=== PATIENT | male | born 1950 | race Caucasian/White ===

== ENCOUNTER 2023-12-16 16:24 | Emergency (ER) | payer MEDICARE, OTHER ==
[~2023-12-16] VITALS: Ht 175.3 cm; Wt 76.2 kg
[2023-12-16 18:21] VITALS: BP 130/72; TEMP 98.1; O2SAT 100
== END 2023-12-16 18:22 | disposition home or self-care (01) ==
LOC: ER 17:23
DX: M19.011 Primary osteoarthritis, right shoulder (principal); G89.29 Other chronic pain

== ENCOUNTER 2024-03-17 16:57 | Inpatient (IN) | payer MEDICARE, OTHER ==
[~2024-03-17] VITALS: Ht 182.9 cm; Wt 116.1 kg
[2024-03-17] MEDS ORDERED: LORAZEPAM INJ 2 MG/ML VIAL ONE ×2 (18:06→20:30)
[2024-03-17] MEDS: LORAZEPAM INJ 2 MG/ML VIAL IV ONE ×2 (18:10→20:36)
[2024-03-17] MEDS: IV NS 0.9% 1,000 ML BAG IV ONE (18:15)
[2024-03-17 18:30] LABS: BASOPHILS # (AUTO) 0.1 K/uL (0.0-0.2); BASOPHILS % (AUTO) 0.4 % (0.0-2.0); EOSINOPHILS % (AUTO) 0.3 % (0.0-6.0); HEMATOCRIT 48 % (39-51); HEMOGLOBIN 16.3 g/dL (13.5-17.5); LYMPHOCYTES # (AUTO) 1.3 K/uL (0.8-4.8); MEAN CORPUSCULAR HEMOGLOBIN 30 PG (26.0-33.0); MEAN CORPUSCULAR HGB CONC 34 g/dl (31.0-36.0); MEAN CORPUSCULAR VOLUME 87 fL (80-96); MONOCYTES # (AUTO) 0.8 K/uL (0.1-1.30); MONOCYTES % (AUTO) 5.3 % (2.0-12.0); NEUTROPHILS # (AUTO) 13.7 K/uL (1.8-8.9); PLATELET COUNT (AUTO) 310 K/uL (150-450); RED BLOOD CELL COUNT(AUTO) 5.54 MIL/uL (4.5-6.0); RED CELL DISTRIBUTION WIDTH 17.1 % (11.5-15.0); WHITE BLOOD COUNT (AUTO) 15.9 K/uL (4.3-11.0)
[2024-03-17 18:41] LABS: SERUM AMMONIA 58 umol/L (11-32)
[2024-03-17 18:55] LABS: LACTIC ACID 5.8 mmol/L (0.4-2.0)
[2024-03-17 18:57] LABS: INR 1.1 (0.91-1.10); PROTHROMBIN TIME 11.6 SECS (9.2-11.1)
[2024-03-17] MEDS: CEFEPIME 1 GM in IV D5W 50 ML IV ONE (19:00)
[2024-03-17] MEDS: VANCOMYCIN 1 GM in IV D5W 250 ML IV ONE (19:00)
[2024-03-17 19:05] LABS: CALCIUM, SERUM 10.1 mg/dL (8.5-10.1); CARBON DIOXIDE 29 mmol/L (21-32); CHLORIDE 106 mmol/L (98-107); CREATININE 1.1 mg/dL (0.6-1.3); GLUCOSE 168 mg/dL (74-106); POTASSIUM 4.8 mmol/L (3.5-5.1); SODIUM SERUM 145 mmol/L (136-145); UREA NITROGEN, BLOOD 10 mg/dL (7-18)
[2024-03-17 19:11] LABS: ALANINE AMINOTRANSFERASE 30 U/L (12-78); ALBUMIN 3.7 g/dL (3.4-5.0); ALKALINE PHOSPHATASE 138 U/L (46-116); ASPARTATE AMINOTRANSFERASE 16 U/L (15-37); BILIRUBIN,DIRECT 0.3 mg/dL (0.0-0.2); BILIRUBIN,TOTAL 1.3 mg/dL (0.2-1.0); TOTAL PROTEIN, SERUM 8.5 g/dL (6.4-8.2)
[2024-03-17 19:12] LABS: ACETAMINOPHEN <10 ug/ml (10-30); ALCOHOL, BLOOD < 3 mg/dL (0-10); SALICYLATE 2.4 mg/dL (2.8-20.0)
[2024-03-17] MEDS ORDERED: HALOPERIDOL LACTATE INJ 5 MG/ML VIAL ONE (19:16)
[2024-03-17] MEDS ORDERED: diphenhydrAMINE HCL 50 MG/ML VIAL ONE (19:16)
[2024-03-17] MEDS: diphenhydrAMINE HCL 50 MG/ML VIAL IV ONE (19:21)
[2024-03-17] MEDS: HALOPERIDOL LACTATE INJ 5 MG/ML VIAL IV ONE (19:23)
[2024-03-17] MEDS ORDERED: CEFEPIME 1 GM VIAL ONE ×2 (20:13→20:52)
[2024-03-17] MEDS ORDERED: VANCOMYCIN 1 GM /D5W 250 ML PB IV ONE (20:52)
[2024-03-17] MEDS ORDERED: Z GUARD REMEDY 4 OZ OINT TP PRN (22:30)
[2024-03-17] MEDS ORDERED: ACETAMINOPHEN 325 MG TABLET PO PRN (22:30)
[2024-03-17] MEDS ORDERED: MAGNESIUM HYDROXIDE 30 ML UDC PO PRN (22:30)
[2024-03-17] MEDS ORDERED: ONDANSETRON HCL/PF 4 MG/2 ML VIAL IVP PRN (22:30)
[2024-03-17] MEDS ORDERED: MAG HYDROX/AL HYDROX/SIMETH 30 ML UDC PO PRN (22:30)
[2024-03-17] MEDS: LACTULOSE 10 G/15 ML UDC (PYXIS) PO SCH (23:30)
[2024-03-17] MEDS: OLANZAPINE 10 MG VIAL IM ONE (23:56)
[2024-03-17] MEDS: ENOXAPARIN SODIUM 40 MG/0.4 ML DISP.SYRIN SQ SCH (23:56)
[2024-03-18] VITALS: BP 116/65; TEMP 98.8; O2SAT 95
[2024-03-18] MEDS ORDERED: OLANZAPINE 10 MG VIAL IM ONE (01:00)
[2024-03-18 04:00] VITALS: BP 98/52; TEMP 98; O2SAT 92; O2SAT 97
[2024-03-18] MEDS: PANTOPRAZOLE 40 MG TABLET.DR PO SCH (07:32)
[2024-03-18 08:00] VITALS: BP 134/64; TEMP 98.4; O2SAT 94
[2024-03-18 12:00] VITALS: BP 160/91; TEMP 98.4; O2SAT 92
[2024-03-18] MEDS: OLANZAPINE 2.5 MG TABLET PO SCH (17:00)
[2024-03-18] MEDS: CEFTRIAXONE 1 G in IV D5W 50 ML IV SCH (18:03)
[2024-03-18] MEDS: HYDROCODONE/APAP 5/325MG TABLET PO PRN (18:37)
[2024-03-18 20:19] VITALS: BP 129/61; TEMP 98.6; O2SAT 93
[2024-03-18] MEDS: ZOLPIDEM TARTRATE 5 MG TABLET PO PRN (21:11)
[2024-03-19 07:00] VITALS: BP 137/80; TEMP 98.4; O2SAT 92
[2024-03-19 11:30] VITALS: BP 148/71; TEMP 97.9; O2SAT 93
[2024-03-19 11:39] LABS: BASOPHILS % (AUTO) 0.4 % (0.0-2.0); EOSINOPHILS # (AUTO) 0.1 K/uL (0.0-0.7); EOSINOPHILS % (AUTO) 0.8 % (0.0-6.0); HEMATOCRIT 43 % (39-51); HEMOGLOBIN 14.5 g/dL (13.5-17.5); LYMPHOCYTES # (AUTO) 1.2 K/uL (0.8-4.8); LYMPHOCYTES % (AUTO) 12.1 % (20.0-44.0); MEAN CORPUSCULAR HEMOGLOBIN 30 PG (26.0-33.0); MEAN CORPUSCULAR HGB CONC 34 g/dl (31.0-36.0); MEAN CORPUSCULAR VOLUME 87 fL (80-96); MONOCYTES # (AUTO) 0.5 K/uL (0.1-1.30); MONOCYTES % (AUTO) 4.8 % (2.0-12.0); NEUTROPHILS # (AUTO) 8.1 K/uL (1.8-8.9); NEUTROPHILS % (AUTO) 81.9 % (43.0-81.0); PLATELET COUNT (AUTO) 254 K/uL (150-450); RED BLOOD CELL COUNT(AUTO) 4.88 MIL/uL (4.5-6.0); WHITE BLOOD COUNT (AUTO) 9.9 K/uL (4.3-11.0)
[2024-03-19 11:48] LABS: CALCIUM, SERUM 8.6 mg/dL (8.5-10.1); POTASSIUM 3.9 mmol/L (3.5-5.1)
[2024-03-19 14:15] LABS: AMPHETAMINE, URINE NEGATIVE (NEGATIVE); BARBITURATE, URINE NEGATIVE (NEGATIVE); BENZODIAZEPINE, URINE NEGATIVE (NEGATIVE); CANNABINOID, URINE NEGATIVE (NEGATIVE); COCCAINE, URINE NEGATIVE (NEGATIVE); PHENCYCLIDINE SCREEN,URINE NEGATIVE (NEGATIVE)
[2024-03-19 14:16] LABS: OPIATE, URINE POSITIVE (NEGATIVE)
[2024-03-19 14:27] LABS: APPEARANCE,URINE TURBID (CLEAR); BILIRUBIN,URINE NEGATIVE (NEGATIVE); BLOOD, URINE NEGATIVE Ery/uL (NEGATIVE); COLOR,URINE YELLOW (YELLOW); KETONES,URINE NEGATIVE (NEGATIVE); LEUKOCYTE ESTERASE ,URINE NEGATIVE (NEGATIVE); NITRITE, URINE NEGATIVE (NEGATIVE); PROTEIN,URINE TRACE mg/dl (NEGATIVE); UGLUCOSE NEGATIVE (NEGATIVE)
[2024-03-19 14:47] LABS: ADD URINE CULTURE NO; BACTERIA,URINE Rare /HPF (None Seen); RBC,URINE 0-2 /HPF (0-2); SQUAMOUS EPITHELIAL CELL,UR None Seen /HPF (None Seen); URINE AMORPHOUS URATE Few /HPF (None Seen); WBC,URINE 0-2 /HPF (0-3)
[2024-03-19 14:48] LABS: COARSE GRANULAR CASTS,URINE Rare /LPF (None Seen)
[2024-03-19 16:00] VITALS: BP 163/107; TEMP 98.1; O2SAT 93
[2024-03-19 20:00] VITALS: BP 142/68; TEMP 98.1; O2SAT 92
[2024-03-19 22:31] LABS: SERUM AMMONIA 42 umol/L (11-32)
[2024-03-19 22:40] LABS: LACTIC ACID 0.8 mmol/L (0.4-2.0)
[2024-03-19 22:41] LABS: ALANINE AMINOTRANSFERASE 24 U/L (12-78); ALBUMIN 2.8 g/dL (3.4-5.0); ALKALINE PHOSPHATASE 106 U/L (46-116); ASPARTATE AMINOTRANSFERASE 16 U/L (15-37); BILIRUBIN,DIRECT 0.1 mg/dL (0.0-0.2); BILIRUBIN,TOTAL 0.5 mg/dL (0.2-1.0); MAGNESIUM 1.9 mg/dL (1.8-2.4); NT-PRO BNP 358 pg/mL (0-125); PHOSPHORUS 4.1 mg/dL (2.5-4.9)
[2024-03-20] VITALS: BP 136/70; TEMP 97.7; O2SAT 91
[2024-03-20 04:00] VITALS: BP 135/65; TEMP 98.4; O2SAT 92
[2024-03-20 06:43] LABS: BASOPHILS % (AUTO) 0.4 % (0.0-2.0); EOSINOPHILS # (AUTO) 0.2 K/uL (0.0-0.7); EOSINOPHILS % (AUTO) 1.5 % (0.0-6.0); HEMATOCRIT 44 % (39-51); HEMOGLOBIN 14.7 g/dL (13.5-17.5); LYMPHOCYTES # (AUTO) 0.9 K/uL (0.8-4.8); LYMPHOCYTES % (AUTO) 7.5 % (20.0-44.0); MEAN CORPUSCULAR HEMOGLOBIN 29 PG (26.0-33.0); MEAN CORPUSCULAR HGB CONC 34 g/dl (31.0-36.0); MEAN CORPUSCULAR VOLUME 87 fL (80-96); MONOCYTES # (AUTO) 0.6 K/uL (0.1-1.30); MONOCYTES % (AUTO) 5.3 % (2.0-12.0); NEUTROPHILS # (AUTO) 9.8 K/uL (1.8-8.9); NEUTROPHILS % (AUTO) 85.3 % (43.0-81.0); PLATELET COUNT (AUTO) 239 K/uL (150-450); RED BLOOD CELL COUNT(AUTO) 5.07 MIL/uL (4.5-6.0); RED CELL DISTRIBUTION WIDTH 16.7 % (11.5-15.0); WHITE BLOOD COUNT (AUTO) 11.5 K/uL (4.3-11.0)
[2024-03-20 07:00] VITALS: BP 115/71; TEMP 98.2; O2SAT 95
[2024-03-20 07:12] LABS: CALCIUM, SERUM 8.5 mg/dL (8.5-10.1); CREATININE 0.8 mg/dL (0.6-1.3); POTASSIUM 3.7 mmol/L (3.5-5.1)
[2024-03-20] MEDS: OLANZAPINE ZYDIS 5 MG TAB.RAPDIS PO PRN (08:39)
[2024-03-20 11:27] VITALS: BP 141/71; TEMP 97.9; O2SAT 92
[2024-03-20 16:00] VITALS: BP 134/74; O2SAT 94
[2024-03-20 20:00] VITALS: BP 141/67; TEMP 97.9; O2SAT 95
[2024-03-21] VITALS: BP 131/73; TEMP 98.1; O2SAT 96
[2024-03-21 04:00] VITALS: BP 120/79; TEMP 97.9; O2SAT 95
[2024-03-21 08:00] VITALS: BP 139/82; TEMP 98.6; O2SAT 93
[2024-03-21 12:00] VITALS: BP 118/69; TEMP 98.2; O2SAT 92
[2024-03-21 16:00] VITALS: BP 129/71; TEMP 97.3; O2SAT 95
[2024-03-21 20:00] VITALS: BP 106/79; TEMP 98.4; O2SAT 92
[2024-03-22] VITALS: BP 132/72; TEMP 98.1; O2SAT 93
[2024-03-22 04:00] VITALS: BP 110/66; TEMP 97.9; O2SAT 97
[2024-03-22 08:00] VITALS: BP 114/75; TEMP 97.7; O2SAT 96
[2024-03-22] MEDS: HYDROCODONE/APAP 5/325MG TABLET PO ONE (11:15)
[2024-03-22 16:00] VITALS: BP 114/64; TEMP 97.7; O2SAT 94
== END 2024-03-22 20:10 | DRG 441 ==
LOC: ER 17:05 → TELE 22:04 → MED 03-22 12:13
PROVIDERS: ADMIT Nurse Practitioner Family; ATTEND Nurse Practitioner Family
DX: K76.82 Hepatic encephalopathy (principal); J15.9 Unspecified bacterial pneumonia; J96.01 Acute respiratory failure with hypoxia; E87.20 Acidosis, unspecified; R65.10 Systemic inflammatory response syndrome (SIRS) of non-infectious origin without acute organ dysfunction; E72.20 Disorder of urea cycle metabolism, unspecified; F39 Unspecified mood [affective] disorder; E80.6 Other disorders of bilirubin metabolism; R73.9 Hyperglycemia, unspecified; F29 Unspecified psychosis not due to a substance or known physiological condition; G47.33 Obstructive sleep apnea (adult) (pediatric)
CPT/HCPCS: 36415; 70450-TC; 71045-TC; 73030-TC; 80048-TC; 80076-TC; 81001; 82140-TC; 82550-TC; 82962-TC; 83605-TC; 83735-TC; 83880; 84100-TC; 84443-TC; 84484-TC; 85025-TC; 85730-TC; 87040-TC; 87086-TC; 93307-TC; 97116-TC; 97530-TC; A4223; G0378; G0480; J0692; J0696; J1200; J1630; J1650; J2060; J3370; J3490; J7030; J7042; J7060

== ENCOUNTER 2024-03-29 16:17 | Inpatient (IN) | payer MEDICARE, OTHER ==
[~2024-03-29] VITALS: Ht 172.7 cm; Wt 117.9 kg
[2024-03-29 17:11] LABS: BASOPHILS # (AUTO) 0.1 K/uL (0.0-0.2); BASOPHILS % (AUTO) 0.9 % (0.0-2.0); EOSINOPHILS # (AUTO) 0.2 K/uL (0.0-0.7); EOSINOPHILS % (AUTO) 1.6 % (0.0-6.0); HEMATOCRIT 44 % (39-51); HEMOGLOBIN 14.8 g/dL (13.5-17.5); LYMPHOCYTES % (AUTO) 10.9 % (20.0-44.0); MEAN CORPUSCULAR HEMOGLOBIN 29 PG (26.0-33.0); MEAN CORPUSCULAR HGB CONC 34 g/dl (31.0-36.0); MEAN CORPUSCULAR VOLUME 87 fL (80-96); MONOCYTES # (AUTO) 0.5 K/uL (0.1-1.30); MONOCYTES % (AUTO) 5.3 % (2.0-12.0); NEUTROPHILS # (AUTO) 7.7 K/uL (1.8-8.9); NEUTROPHILS % (AUTO) 81.3 % (43.0-81.0); PLATELET COUNT (AUTO) 233 K/uL (150-450); RED BLOOD CELL COUNT(AUTO) 5.06 MIL/uL (4.5-6.0); RED CELL DISTRIBUTION WIDTH 16.7 % (11.5-15.0); WHITE BLOOD COUNT (AUTO) 9.4 K/uL (4.3-11.0)
[2024-03-29 17:22] LABS: CALCIUM, SERUM 8.7 mg/dL (8.5-10.1); CARBON DIOXIDE 27 mmol/L (21-32); CHLORIDE 112 mmol/L (98-107); CREATININE 0.9 mg/dL (0.6-1.3); GLUCOSE 187 mg/dL (74-106); POTASSIUM 3.8 mmol/L (3.5-5.1); SERUM AMMONIA 25 umol/L (11-32); SODIUM SERUM 148 mmol/L (136-145); UREA NITROGEN, BLOOD 6 mg/dL (7-18)
[2024-03-29 17:34] LABS: ALANINE AMINOTRANSFERASE 23 U/L (12-78); ALKALINE PHOSPHATASE 111 U/L (46-116); ASPARTATE AMINOTRANSFERASE 11 U/L (15-37); BILIRUBIN,DIRECT 0.2 mg/dL (0.0-0.2); BILIRUBIN,TOTAL 0.7 mg/dL (0.2-1.0); LIPASE 26 U/L (16-77); NT-PRO BNP 391 pg/mL (0-125); TOTAL PROTEIN, SERUM 6.8 g/dL (6.4-8.2)
[2024-03-29] MEDS ORDERED: Z GUARD REMEDY 4 OZ OINT TP PRN (21:30)
[2024-03-29] MEDS ORDERED: ONDANSETRON HCL/PF 4 MG/2 ML VIAL IVP PRN (21:30)
[2024-03-29] MEDS ORDERED: MAG HYDROX/AL HYDROX/SIMETH 30 ML UDC PO PRN (21:30)
[2024-03-29] MEDS ORDERED: MAGNESIUM HYDROXIDE 30 ML UDC PO PRN (21:30)
[2024-03-30] MEDS: FUROSEMIDE 40 MG/4 ML VIAL IV ONE (00:13)
[2024-03-30] MEDS ORDERED: FUROSEMIDE 40 MG/4 ML VIAL ONE (00:13)
[2024-03-30 08:18] LABS: BASOPHILS % (AUTO) 0.4 % (0.0-2.0); EOSINOPHILS # (AUTO) 0.3 K/uL (0.0-0.7); EOSINOPHILS % (AUTO) 2.8 % (0.0-6.0); HEMATOCRIT 46 % (39-51); HEMOGLOBIN 15.7 g/dL (13.5-17.5); LYMPHOCYTES # (AUTO) 1.1 K/uL (0.8-4.8); LYMPHOCYTES % (AUTO) 10.9 % (20.0-44.0); MEAN CORPUSCULAR HEMOGLOBIN 30 PG (26.0-33.0); MEAN CORPUSCULAR HGB CONC 34 g/dl (31.0-36.0); MEAN CORPUSCULAR VOLUME 87 fL (80-96); MONOCYTES # (AUTO) 0.6 K/uL (0.1-1.30); MONOCYTES % (AUTO) 5.5 % (2.0-12.0); NEUTROPHILS # (AUTO) 8.2 K/uL (1.8-8.9); NEUTROPHILS % (AUTO) 80.4 % (43.0-81.0); PLATELET COUNT (AUTO) 263 K/uL (150-450); RED BLOOD CELL COUNT(AUTO) 5.29 MIL/uL (4.5-6.0); RED CELL DISTRIBUTION WIDTH 16.9 % (11.5-15.0); WHITE BLOOD COUNT (AUTO) 10.2 K/uL (4.3-11.0)
[2024-03-30 08:29] LABS: ALBUMIN 3.3 g/dL (3.4-5.0); BILIRUBIN,TOTAL 0.7 mg/dL (0.2-1.0); CALCIUM, SERUM 8.9 mg/dL (8.5-10.1); MAGNESIUM 2.3 mg/dL (1.8-2.4); PHOSPHORUS 4.2 mg/dL (2.5-4.9); POTASSIUM 3.7 mmol/L (3.5-5.1); TOTAL PROTEIN, SERUM 7.6 g/dL (6.4-8.2)
[2024-03-30] MEDS ORDERED: SPIRONOLACTONE 25 MG TABLET ONE (08:45)
[2024-03-30] MEDS: LACTULOSE 10 G/15 ML UDC (PYXIS) PO SCH (09:00)
[2024-03-30] MEDS: SPIRONOLACTONE 25 MG TABLET PO SCH (09:00)
[2024-03-30] MEDS ORDERED: LACTULOSE 10 G/15 ML UDC (PYXIS) ONE ×2 (10:18)
[2024-03-30] MEDS ORDERED: ENOXAPARIN SODIUM 40 MG/0.4 ML DISP.SYRIN SQ ONE (13:13)
[2024-03-30] MEDS: ENOXAPARIN SODIUM 40 MG/0.4 ML DISP.SYRIN SQ SCH (13:17)
[2024-03-30 13:32] LABS: ABG BASE EXCESS -1.7 mmol/L (-2.0-3.0); ABG PCO2 33.6 mmHg (35.0-48.0); ABG PH 7.428 (7.350-7.450); ABG PO2 80.2 mmHg (83.0-108.0); ABG TOTAL HEMOGLOBIN 16.3 G/dL (13.5-17.5); COHb 0.7 % (0.5-1.5); MetHb 0.2 % (0.0-1.5); O2Hb 95.1 % (94.0-97.0); SITE, ABG RIGHT RADIAL
[2024-03-30] MEDS ORDERED: IPRATROPIUM NEB FS 0.5 MG/2.5 ML AMPUL.NEB ONE (13:35)
[2024-03-30] MEDS ORDERED: ALBUTEROL FS 2.5 MG/3 ML VIAL.NEB ONE (13:35)
[2024-03-30 13:37] VITALS: O2SAT 96
[2024-03-30] MEDS: ALBUTEROL HALF STRENGTH 1.25 MG/3 ML VIAL.NEB NEB SCH (13:37)
[2024-03-30] MEDS: IPRATROPIUM NEB FS 0.5 MG/2.5 ML AMPUL.NEB NEB SCH (13:37)
[2024-03-30 13:52] VITALS: O2SAT 98
[2024-03-30] MEDS: FUROSEMIDE 40 MG/4 ML VIAL IV SCH (16:22)
[2024-03-30] MEDS: HYDROCODONE/APAP 5/325MG TABLET PO PRN (16:22)
[2024-03-30 19:50] VITALS: O2SAT 98
[2024-03-30 20:05] VITALS: O2SAT 98
[2024-03-31] VITALS (12 sets, daily range): BP systolic 113–128; BP diastolic 72–74; TEMP 96.4–98.1; O2SAT 92–100
[2024-03-31] MEDS: HYDROCODONE/APAP 5/325MG TABLET PO PRN (03:01)
[2024-03-31 06:32] LABS: BASOPHILS # (AUTO) 0.1 K/uL (0.0-0.2); BASOPHILS % (AUTO) 0.5 % (0.0-2.0); EOSINOPHILS # (AUTO) 0.2 K/uL (0.0-0.7); EOSINOPHILS % (AUTO) 1.9 % (0.0-6.0); HEMATOCRIT 44 % (39-51); LYMPHOCYTES # (AUTO) 1.6 K/uL (0.8-4.8); MEAN CORPUSCULAR HEMOGLOBIN 30 PG (26.0-33.0); MEAN CORPUSCULAR HGB CONC 34 g/dl (31.0-36.0); MEAN CORPUSCULAR VOLUME 87 fL (80-96); MONOCYTES # (AUTO) 0.6 K/uL (0.1-1.30); MONOCYTES % (AUTO) 4.7 % (2.0-12.0); NEUTROPHILS # (AUTO) 9.9 K/uL (1.8-8.9); NEUTROPHILS % (AUTO) 79.9 % (43.0-81.0); PLATELET COUNT (AUTO) 242 K/uL (150-450); RED BLOOD CELL COUNT(AUTO) 5.07 MIL/uL (4.5-6.0); RED CELL DISTRIBUTION WIDTH 16.6 % (11.5-15.0); WHITE BLOOD COUNT (AUTO) 12.4 K/uL (4.3-11.0)
[2024-03-31 06:46] LABS: CALCIUM, SERUM 8.8 mg/dL (8.5-10.1); CREATININE 0.9 mg/dL (0.6-1.3); POTASSIUM 3.5 mmol/L (3.5-5.1)
[2024-03-31] MEDS: FUROSEMIDE 40 MG/4 ML VIAL IV SCH (09:13)
[2024-03-31] MEDS: POTASSIUM CHLORIDE 20 MEQ TAB.PRT.SR PO SCH (09:14)
[2024-03-31] MEDS: HYDROCODONE/APAP 10/325MG TABLET PO PRN (11:16)
[2024-04-01] VITALS (8 sets, daily range): O2SAT 94–99
[2024-04-01 08:19] LABS: BASOPHILS # (AUTO) 0.1 K/uL (0.0-0.2); BASOPHILS % (AUTO) 0.5 % (0.0-2.0); EOSINOPHILS # (AUTO) 0.3 K/uL (0.0-0.7); EOSINOPHILS % (AUTO) 3.1 % (0.0-6.0); HEMATOCRIT 45 % (39-51); HEMOGLOBIN 15.2 g/dL (13.5-17.5); LYMPHOCYTES # (AUTO) 1.3 K/uL (0.8-4.8); LYMPHOCYTES % (AUTO) 11.8 % (20.0-44.0); MEAN CORPUSCULAR HEMOGLOBIN 29 PG (26.0-33.0); MEAN CORPUSCULAR HGB CONC 34 g/dl (31.0-36.0); MEAN CORPUSCULAR VOLUME 87 fL (80-96); MONOCYTES # (AUTO) 0.7 K/uL (0.1-1.30); MONOCYTES % (AUTO) 5.9 % (2.0-12.0); NEUTROPHILS # (AUTO) 8.8 K/uL (1.8-8.9); NEUTROPHILS % (AUTO) 78.7 % (43.0-81.0); PLATELET COUNT (AUTO) 252 K/uL (150-450); RED BLOOD CELL COUNT(AUTO) 5.24 MIL/uL (4.5-6.0); RED CELL DISTRIBUTION WIDTH 16.6 % (11.5-15.0); WHITE BLOOD COUNT (AUTO) 11.2 K/uL (4.3-11.0)
[2024-04-01 08:29] LABS: CALCIUM, SERUM 8.5 mg/dL (8.5-10.1); CREATININE 0.9 mg/dL (0.6-1.3); POTASSIUM 3.7 mmol/L (3.5-5.1)
[2024-04-01] MEDS ORDERED: SPIR25TA6 PO (13:23)
[2024-04-01] MEDS: ACETAMINOPHEN 325 MG TABLET PO PRN (15:43)
[2024-04-02] VITALS (8 sets, daily range): BP systolic 123–141; BP diastolic 77–96; TEMP 98.6–98.7; O2SAT 96–99
[2024-04-02] MEDS: MORPHINE SULFATE INJ 2 MG/ML DISP.SYRIN IV ONE (04:00)
[2024-04-02 07:11] LABS: BASOPHILS # (AUTO) 0.1 K/uL (0.0-0.2); BASOPHILS % (AUTO) 0.6 % (0.0-2.0); EOSINOPHILS # (AUTO) 0.3 K/uL (0.0-0.7); EOSINOPHILS % (AUTO) 2.6 % (0.0-6.0); HEMATOCRIT 45 % (39-51); HEMOGLOBIN 15.6 g/dL (13.5-17.5); LYMPHOCYTES # (AUTO) 1.3 K/uL (0.8-4.8); LYMPHOCYTES % (AUTO) 12.8 % (20.0-44.0); MEAN CORPUSCULAR HEMOGLOBIN 30 PG (26.0-33.0); MEAN CORPUSCULAR HGB CONC 35 g/dl (31.0-36.0); MEAN CORPUSCULAR VOLUME 86 fL (80-96); MONOCYTES # (AUTO) 0.8 K/uL (0.1-1.30); MONOCYTES % (AUTO) 7.4 % (2.0-12.0); NEUTROPHILS # (AUTO) 7.8 K/uL (1.8-8.9); NEUTROPHILS % (AUTO) 76.6 % (43.0-81.0); PLATELET COUNT (AUTO) 258 K/uL (150-450); RED BLOOD CELL COUNT(AUTO) 5.18 MIL/uL (4.5-6.0); RED CELL DISTRIBUTION WIDTH 16.6 % (11.5-15.0); WHITE BLOOD COUNT (AUTO) 10.2 K/uL (4.3-11.0)
[2024-04-02 08:40] LABS: CREATININE 0.7 mg/dL (0.6-1.3); POTASSIUM 4.3 mmol/L (3.5-5.1)
[2024-04-02] MEDS ORDERED: DEXTROSE 50%-WATER 50 ML DISP.SYRIN IV PRN (09:00)
[2024-04-02] MEDS ORDERED: MORPHINE SULFATE INJ 4 MG/ML DISP.SYRIN IV PRN (09:00)
[2024-04-02] MEDS ORDERED: *INSULIN REGULAR(HUMULIN R)HUM 100 UNIT/ML VIAL SQ PRN (09:00)
[2024-04-02] MEDS: BLOOD SUGAR DIAGNOSTIC 1 EACH STRIP VI SCH (10:49)
[2024-04-02] MEDS: INSULIN REGULAR, HUMAN 100 UNIT/ML 3 ML VIAL SQ PRN (10:55)
== END 2024-04-02 18:33 | DRG 291 ==
LOC: ER 16:21 → TRANSITION 03-30 04:21 → TELE1 03-30 13:48 → MEDSG1 04-01 20:18
PROVIDERS: ADMIT Nurse Practitioner Acute Care; ATTEND Internal Medicine
DX: I11.0 Hypertensive heart disease with heart failure (principal); G92.8 Other toxic encephalopathy; I50.33 Acute on chronic diastolic (congestive) heart failure; J96.01 Acute respiratory failure with hypoxia; E44.1 Mild protein-calorie malnutrition; E87.0 Hyperosmolality and hypernatremia; E66.2 Morbid (severe) obesity with alveolar hypoventilation; K76.82 Hepatic encephalopathy; E88.09 Other disorders of plasma-protein metabolism, not elsewhere classified; Z20.822 Contact with and (suspected) exposure to COVID-19; Z68.39 Body mass index [BMI] 39.0-39.9, adult; F99 Mental disorder, not otherwise specified; K76.9 Liver disease, unspecified
CPT/HCPCS: 36415; 71045-TC; 74018; 76700-TC; 80048-TC; 80053-TC; 80076-TC; 82140-TC; 82803-TC; 82962-TC; 83690-TC; 83735-TC; 83880; 84100-TC; 84484-TC; 85025-TC; 93970-TC; 94760-TC; 94799-TC; G0378; J1650; J1815; J1940; J2270